=== PATIENT | female | born 1975 | race Caucasian/White ===

== ENCOUNTER 2018-02-02 09:28 | Emergency (ER) | payer MEDICAID, OTHER ==
[~2018-02-02] VITALS: Ht 162.6 cm; Wt 65.9 kg
[2018-02-02] MEDS ORDERED: IBUPROFEN 800 MG TABLET PO ONE (11:15)
[2018-02-02 11:53] VITALS: BP 101/59
== END 2018-02-02 12:33 | disposition home or self-care (01) ==
LOC: EMS 09:29
DX: M79.662 Pain in left lower leg (principal); M79.89 Other specified soft tissue disorders; F17.210 Nicotine dependence, cigarettes, uncomplicated; Z88.0 Allergy status to penicillin; Y04.0XXA Assault by unarmed brawl or fight, initial encounter; Y93.89 Activity, other specified; Y92.89 Other specified places as the place of occurrence of the external cause; Y99.8 Other external cause status

== ENCOUNTER 2021-01-24 20:53 | Emergency (ER) | payer MEDICAID, OTHER ==
[~2021-01-24] VITALS: Ht 172.7 cm; Wt 79.5 kg
[2021-01-24 21:27] LABS: APPEARANCE,URINE TURBID (CLEAR); BILIRUBIN,URINE NEGATIVE (NEGATIVE); GLUCOSE, URINE (UA) NEGATIVE (NEGATIVE); KETONES,URINE TRACE mg/dL (NEGATIVE); LEUKOCYTE ESTERASE ,URINE MODERATE (NEGATIVE); NITRATE,URINE POSITIVE (NEGATIVE); OCCULT BLOOD,URINE LARGE (NEGATIVE); PROTEIN,URINE SEE CONFIRM (NEGATIVE)
[2021-01-24 21:32] LABS: SULFOSALICYLIC ACID,URINE 3+ (Negative)
[2021-01-24 21:34] LABS: BACTERIA,URINE Few /HPF (None Seen); SQUAMOUS EPITHELIAL CELL,UR Few /LPF (None Seen); WBC,URINE >100 /HPF (0-5)
[2021-01-24] MEDS ORDERED: CEPHALEXIN MONOHYDRATE 500 MG CAPSULE PO ONE (22:15)
[2021-01-24] MEDS ORDERED: PHENAZOPYRIDINE HCL 100 MG TABLET PO ONE (22:15)
[2021-01-24 23:10] VITALS: BP 119/78
== END 2021-01-24 23:18 | disposition home or self-care (01) ==
LOC: EMS 20:56
DX: N39.0 Urinary tract infection, site not specified (principal); F17.210 Nicotine dependence, cigarettes, uncomplicated
CPT/HCPCS: 81001; 81002; 87077; 87086; 99283

== ENCOUNTER 2021-03-24 08:53 | Emergency (ER) | payer OTHER ==
[~2021-03-24] VITALS: Ht 172.7 cm; Wt 68.2 kg
[2021-03-24] MEDS ORDERED: SODIUM CHLORIDE 0.9% 250 ML IRRIG SOLUTION BOTTLE IRRIG ONE (09:30)
[2021-03-24] MEDS ORDERED: ACETAMINOPHEN 325 MG TABLET PO ONE (09:30)
[2021-03-24] MEDS ORDERED: LIDOCAINE 1% 10 ML VIAL ID ONE (09:45)
[2021-03-24 12:25] VITALS: BP 129/70
== END 2021-03-24 12:26 | disposition home or self-care (01) ==
LOC: EMS 08:53
DX: S01.112A Laceration without foreign body of left eyelid and periocular area, initial encounter (principal); F17.210 Nicotine dependence, cigarettes, uncomplicated; Z88.0 Allergy status to penicillin; W20.8XXA Other cause of strike by thrown, projected or falling object, initial encounter; Y93.89 Activity, other specified; Y92.89 Other specified places as the place of occurrence of the external cause; Y99.8 Other external cause status
CPT/HCPCS: 12013; 99282; J3490

== ENCOUNTER 2021-04-02 12:38 | Emergency (ER) | payer OTHER ==
[~2021-04-02] VITALS: Ht 172.7 cm; Wt 65.9 kg
[2021-04-02 12:50] VITALS: BP 128/87
== END 2021-04-02 14:09 | disposition home or self-care (01) ==
LOC: EMS 12:40
DX: S01.112D Laceration without foreign body of left eyelid and periocular area, subsequent encounter (principal); X58.XXXD Exposure to other specified factors, subsequent encounter; Z48.02 Encounter for removal of sutures; F17.210 Nicotine dependence, cigarettes, uncomplicated
CPT/HCPCS: 99281; Z7502

== ENCOUNTER 2022-02-17 01:14 | Emergency (ER) | payer OTHER ==
[~2022-02-17] VITALS: Ht 172.7 cm; Wt 81.8 kg
[2022-02-17] MEDS ORDERED: METOCLOPRAMIDE HCL 5 MG/ML 2 ML VIAL IVP ONE (01:45)
[2022-02-17] MEDS ORDERED: DiphenhydrAMINE HCL 50 MG/ML VIAL IVP ONE (01:45)
[2022-02-17] MEDS ORDERED: SODIUM CHLORIDE 0.9% 1,000 ML IV ONE (01:45)
[2022-02-17] MEDS ORDERED: ACETAMINOPHEN 500 MG TABLET PO ONE (01:45)
[2022-02-17 02:28] LABS: BASOPHILS % (AUTO) 0.6 % (0.0-2.0); EOSINOPHILS % (AUTO) 0.7 % (1.0-6.0); HEMATOCRIT 34.9 % (36-46); HEMOGLOBIN 11.7 g/dL (12.0-16.0); LYMPHOCYTES # (AUTO) 0.3 K/uL (1.0-4.8); LYMPHOCYTES % (AUTO) 4.5 % (22.0-44.0); MEAN CORPUSCULAR HEMOGLOBIN 30.3 pg (26.0-34.0); MEAN CORPUSCULAR HGB CONC 33.7 G/dL (31.0-37.0); MEAN CORPUSCULAR VOLUME 90 fL (80-100); MONOCYTES # (AUTO) 0.2 K/uL (0.1-1.0); MONOCYTES % (AUTO) 4.4 % (2.0-9.0); NEUTROPHILS # (AUTO) 5.1 K/uL (1.8-7.7); PLATELET COUNT (AUTO) 203 K/uL (150-450); RED BLOOD CELL COUNT(AUTO) 3.87 MIL/uL (4.00-5.20); RED CELL DISTRIBUTION WIDTH 14.5 % (11.5-14.5)
[2022-02-17 02:34] LABS: NEUTROPHILS % (AUTO) 89.8 % (40.0-70.0)
[2022-02-17 02:35] LABS: CALCIUM, TOTAL 8.6 mg/dL (8.8-10.5); CREATININE 1.09 mg/dL (0.60-1.30); POTASSIUM 3.6 mmol/L (3.5-5.1)
[2022-02-17 02:46] LABS: ALBUMIN 3.1 g/dL (3.4-5.0); BILIRUBIN,TOTAL 0.2 mg/dL (0.1-1.0); TOTAL PROTEIN, SERUM 5.9 g/dL (6.4-8.2)
[2022-02-17 03:24] VITALS: BP 109/73
[2022-02-18] MEDS ORDERED: ACET-66 PO (11:13)
[2022-02-18] MEDS ORDERED: IBUP-2070 PO (11:13)
== END 2022-02-17 04:07 | disposition home or self-care (01) ==
LOC: EMS 01:15
DX: R51.9 Headache, unspecified (principal); F10.20 Alcohol dependence, uncomplicated; F17.210 Nicotine dependence, cigarettes, uncomplicated; Z88.0 Allergy status to penicillin
CPT/HCPCS: 99284; 96374; 70450; 96361; 96375; 80053; 84702; 85025; 36415; J1200; J2765; J7030

== ENCOUNTER 2022-02-18 09:04 | Emergency (ER) | payer OTHER ==
[~2022-02-18] VITALS: Ht 167.6 cm; Wt 77.3 kg
[2022-02-18 10:01] LABS: COVID AG,FIA SOURCE NASAL SWAB
[2022-02-18 10:30] LABS: INFLUENZA TYPE A NEGATIVE FOR TYPE A (NEGATIVE)
[2022-02-18 11:12] LABS: INFLUENZA TYPE B NEGATIVE FOR TYPE B (NEGATIVE)
[2022-02-18] MEDS ORDERED: IBUP-2070 PO (11:13)
[2022-02-18] MEDS ORDERED: ACET-66 PO (11:13)
[2022-02-18] MEDS ORDERED: KETOROLAC TROMETHAMINE 30 MG/ML VIAL IM ONE (11:15)
[2022-02-18 12:03] VITALS: BP 118/71
== END 2022-02-18 12:17 | disposition home or self-care (01) ==
LOC: EMS 09:04
DX: G43.909 Migraine, unspecified, not intractable, without status migrainosus (principal); F17.210 Nicotine dependence, cigarettes, uncomplicated; Z88.0 Allergy status to penicillin; Z20.822 Contact with and (suspected) exposure to COVID-19; Z98.890 Other specified postprocedural states
CPT/HCPCS: 99283; 87426; 87804; 96372; J1885

== ENCOUNTER 2024-03-22 05:38 | Emergency (ER) | payer OTHER ==
[~2024-03-22] VITALS: Ht 172.7 cm; Wt 72.7 kg
[~2024-03-22 05:38] MED LIST: ACET-66 PO; IBUP-1492 PO
[2024-03-22 05:46] VITALS: TEMP 97.9
[2024-03-22 06:08] VITALS: BP 113/77; PULSE 77; RESP 18; O2SAT 100
[2024-03-22] MEDS ORDERED: PROPARACAINE HCL 0.5% 15 ML OPHTHALMIC SOLUTION OD ONE (06:15)
[2024-03-22] MEDS ORDERED: FLUORESCEIN SODIUM 1 MG STRIP OD ONE (06:15)
[2024-03-22] MEDS ORDERED: OFLO5DRO49 OD (06:42)
[2024-03-22] MEDS ORDERED: OFLOXACIN 0.3% 5 ML OPHTHALMIC SOLUTION OD ONE (06:45)
[2024-03-22] MEDS ORDERED: IBUP-1492 PO (10:01)
[2024-03-22] MEDS ORDERED: ACET-3385 PO (10:01)
== END 2024-03-22 07:06 | disposition home or self-care (01) ==
LOC: EMS 05:38
DX: T15.11XA Foreign body in conjunctival sac, right eye, initial encounter (principal); F17.210 Nicotine dependence, cigarettes, uncomplicated; Z88.0 Allergy status to penicillin; W44.8XXA Other foreign body entering into or through a natural orifice, initial encounter; Y93.89 Activity, other specified; Y92.89 Other specified places as the place of occurrence of the external cause; Y99.8 Other external cause status
CPT/HCPCS: 65205; 99284; J9035; Z7502; Z7610